=== PATIENT | male | born 1940 | race Caucasian/White ===

== ENCOUNTER 2024-07-10 12:33 | Inpatient (IN) | payer MEDICARE, BC ==
[~2024-07-10] VITALS: Ht 182.9 cm; Wt 70.3 kg
[2024-07-10] MEDS ORDERED: APIX2.5T PO (15:17)
[2024-07-10] MEDS ORDERED: LEVO150T8 PO (15:42)
[2024-07-10] MEDS ORDERED: ESZO2TAB31 PO (15:42)
[2024-07-10] MEDS ORDERED: LIDO5JEL4 MM (15:42)
[2024-07-10] MEDS ORDERED: FURO80TA3 PO (15:42)
[2024-07-10] MEDS ORDERED: ROSU10TA2 PO (15:42)
[2024-07-10] MEDS ORDERED: ONDANSETRON 4 MG/2 ML VIAL IV PRN (15:45)
[2024-07-10] MEDS ORDERED: REMEDY ESSENTIAL ZINC PASTE 113 GM TOP PRN (15:45)
[2024-07-10] MEDS ORDERED: REMEDY ESSENTIAL ZINC PASTE 113 GM TP PRN (15:45)
[2024-07-10] MEDS ORDERED: MAGNESIUM HYDROXIDE 30 ML LIQUID UDC PO PRN (15:45)
[2024-07-10] MEDS ORDERED: ACETAMINOPHEN 325 MG TABLET PO PRN (15:45)
[2024-07-10 15:56] VITALS: BP 145/81; TEMP 97.6; O2SAT 97
[2024-07-10] MEDS ORDERED: TRIA15CR2 TP (16:14)
[2024-07-10] MEDS ORDERED: LACT-246 PO (16:15)
[2024-07-10] MEDS ORDERED: Medication Not On Formulary EA (Rosuvastatin Calcium (Crestor) 10 MG) PO SCH (16:45)
[2024-07-10] MEDS ORDERED: Medication Not On Formulary EA (Eszopiclone 2 MG) PO PRN (16:45)
[2024-07-10] MEDS ORDERED: Medication Not On Formulary EA (Lactose-Reduced Food (Ensure Enlive) 237 ML) PO SCH (17:00)
[2024-07-10] MEDS: APIXABAN 2.5 MG TABLET PO SCH (17:38)
[2024-07-10] MEDS: HYDROCODONE/APAP 5-325MG TABLET PO PRN (20:13)
[2024-07-10] MEDS: DOCUSATE SODIUM 100 MG CAPSULE PO SCH (20:14)
[2024-07-10 20:49] VITALS: TEMP 97.3
[2024-07-10 20:51] VITALS: BP 128/72; TEMP 97.3; O2SAT 96
[2024-07-10] MEDS: LIDOCAINE VISCUS 2% 15 ML UDC MM SCH (22:00)
[2024-07-11] MEDS: GUAIFENESIN/DEXTROMETHORPHAN 5 ML UDC PO PRN (04:27)
[2024-07-11] MEDS: LEVOTHYROXINE SODIUM 150 MCG TABLET PO SCH (06:27)
[2024-07-11] MEDS: PANTOPRAZOLE SODIUM 40 MG TABLET.DR PO SCH (06:28)
[2024-07-11 07:22] VITALS: TEMP 97.4
[2024-07-11 07:23] VITALS: BP 142/83; TEMP 97.4; O2SAT 96
[2024-07-11 07:57] VITALS: BP 145/79; TEMP 97.8; O2SAT 97
[2024-07-11 08:16] LABS: BASOPHILS % (AUTO) 0.2 % (0.0-2.0); EOSINOPHILS % (AUTO) 0.2 % (0.0-7.0); HEMATOCRIT 42.9 % (36.7-47.1); LYMPHOCYTES # (AUTO) 1.4 K/uL (0.8-4.8); MEAN CORPUSCULAR HEMOGLOBIN 31.4 uug (23.8-33.4); MEAN CORPUSCULAR HGB CONC 33 g/dL (32.5-36.3); MONOCYTES # (AUTO) 0.8 K/uL (0.1-1.30); MONOCYTES % (AUTO) 8.3 % (0.0-11.0); NEUTROPHILS # (AUTO) 7.8 K/uL (1.8-8.9); NEUTROPHILS % (AUTO) 77.3 % (38.5-71.5); PLATELET COUNT (AUTO) 118 K/uL (152-348); RED BLOOD CELL COUNT(AUTO) 4.47 MIL/uL (4.06-5.63); WHITE BLOOD COUNT (AUTO) 10.1 K/uL (3.6-10.2)
[2024-07-11 08:21] LABS: DIFFERENTIAL COMMENT 1
[2024-07-11 08:33] LABS: CALCIUM 8.8 mg/dL (8.5-10.1); CARBON DIOXIDE 30 mmol/L (21-32); CHLORIDE 104 mmol/L (98-107); CHOLESTEROL 96 mg/dL (<200); GLUCOSE 154 mg/dL (74-106); HDL CHOLESTEROL 46 mg/dL (40-60); MAGNESIUM 2.1 mg/dL (1.8-2.4); POTASSIUM 4.8 mmol/L (3.5-5.1); SODIUM SERUM 138 mmol/L (136-145); TRIGLYCERIDES 56 MG/DL (30-150); UREA NITROGEN, BLOOD 43 mg/dL (7-18)
[2024-07-11] MEDS: ENSURE ENLIVE (VAN) 240 ML LIQUID PO SCH (09:58)
[2024-07-11 15:41] VITALS: BP 131/84; TEMP 97.4; O2SAT 96
[2024-07-11 21:17] VITALS: BP 100/65; TEMP 97.2; O2SAT 93
[2024-07-11] MEDS: ATORVASTATIN 20 MG TABLET PO SCH (21:32)
[2024-07-11] MEDS: CETIRIZINE HCL 10 MG TABLET PO SCH (21:32)
[2024-07-12 05:15] VITALS: BP 129/76; TEMP 98.3; O2SAT 95
[2024-07-12 09:01] VITALS: BP 132/88; TEMP 97.6; O2SAT 95
[2024-07-12 16:09] VITALS: BP 113/73; TEMP 97.5; O2SAT 94
[2024-07-12 20:14] VITALS: BP 133/73; TEMP 97.5; O2SAT 98
[2024-07-13 06:15] VITALS: BP 141/82; TEMP 97.6; O2SAT 95
[2024-07-13 08:54] LABS: BASOPHILS % (AUTO) 0.4 % (0.0-2.0); EOSINOPHILS # (AUTO) 0.1 K/uL (0.0-0.7); EOSINOPHILS % (AUTO) 1.4 % (0.0-7.0); HEMOGLOBIN 15.2 g/dL (12.5-16.3); LYMPHOCYTES # (AUTO) 1.3 K/uL (0.8-4.8); LYMPHOCYTES % (AUTO) 12.6 % (20.5-51.5); MEAN CORPUSCULAR HEMOGLOBIN 32.1 uug (23.8-33.4); MEAN CORPUSCULAR HGB CONC 33 g/dL (32.5-36.3); MEAN CORPUSCULAR VOLUME 97.1 fL (73.0-96.2); MONOCYTES # (AUTO) 0.7 K/uL (0.1-1.30); MONOCYTES % (AUTO) 6.4 % (0.0-11.0); NEUTROPHILS % (AUTO) 79.2 % (38.5-71.5); PLATELET COUNT (AUTO) 118 K/uL (152-348); RED BLOOD CELL COUNT(AUTO) 4.74 MIL/uL (4.06-5.63); RED CELL DISTRIBUTION WIDTH 21.3 % (12.1-16.2); WHITE BLOOD COUNT (AUTO) 10.1 K/uL (3.6-10.2)
[2024-07-13 09:00] LABS: DIFFERENTIAL COMMENT 1
[2024-07-13 09:11] LABS: ALANINE AMINOTRANSFERASE 91 U/L (16-63); ALBUMIN 2.1 g/dL (3.4-5.0); ALKALINE PHOSPHATASE 451 U/L (50-136); ASPARTATE AMINOTRANSFERASE 61 U/L (15-37); BILIRUBIN,TOTAL 2.8 mg/dL (0.2-1.0); CARBON DIOXIDE 29 mmol/L (21-32); CHLORIDE 106 mmol/L (98-107); CREATININE 1.1 mg/dL (0.6-1.3); GLUCOSE 86 mg/dL (74-106); PHOSPHOROUS 3.6 mg/dL (2.5-4.9); POTASSIUM 4.9 mmol/L (3.5-5.1); SODIUM SERUM 142 mmol/L (136-145); TOTAL PROTEIN, SERUM 5.1 g/dL (6.4-8.2); UREA NITROGEN, BLOOD 27 mg/dL (7-18)
[2024-07-13 11:17] LABS: BAND % (MANUAL) 4 % (0-10); LYMPHOCYTES % (MANUAL) 6 % (20-40); MONOCYTES % (MANUAL) 9 % (2-10); NEUTROPHILS % (MANUAL) 73 % (42-75)
[2024-07-13 11:18] LABS: ANISOCYTOSIS 2+; PLATELET ESTIMATE DECREASED; REACTIVE LYMPHOCYTES 8 % (0-0)
[2024-07-13 18:42] VITALS: BP 130/77; TEMP 97.8; O2SAT 94
[2024-07-13 20:44] VITALS: BP 120/75; TEMP 97.9; O2SAT 95
[2024-07-14] MEDS: ZOLPIDEM 5 MG TABLET PO PRN (00:58)
[2024-07-14 07:07] VITALS: BP 123/82; TEMP 98.3; O2SAT 92
[2024-07-14 07:51] VITALS: BP 114/76; TEMP 97.8; O2SAT 96
[2024-07-14] MEDS ORDERED: METOCLOPRAMIDE HCL 10 MG/2 ML VIAL IV PRN (08:30)
[2024-07-14 09:20] LABS: BASOPHILS # (AUTO) 0.1 K/UL (0.0-0.2); BASOPHILS % (AUTO) 0.8 % (0.0-2.0); EOSINOPHILS # (AUTO) 0.1 K/uL (0.0-0.7); EOSINOPHILS % (AUTO) 1.1 % (0.0-7.0); HEMATOCRIT 43.3 % (36.7-47.1); HEMOGLOBIN 14.2 g/dL (12.5-16.3); LYMPHOCYTES # (AUTO) 1.6 K/uL (0.8-4.8); LYMPHOCYTES % (AUTO) 12.9 % (20.5-51.5); MEAN CORPUSCULAR HEMOGLOBIN 31.6 uug (23.8-33.4); MEAN CORPUSCULAR HGB CONC 33 g/dL (32.5-36.3); MEAN CORPUSCULAR VOLUME 96.4 fL (73.0-96.2); MONOCYTES # (AUTO) 1.2 K/uL (0.1-1.30); MONOCYTES % (AUTO) 9.4 % (0.0-11.0); NEUTROPHILS # (AUTO) 9.5 K/uL (1.8-8.9); NEUTROPHILS % (AUTO) 75.8 % (38.5-71.5); PLATELET COUNT (AUTO) 119 K/uL (152-348); RED BLOOD CELL COUNT(AUTO) 4.49 MIL/uL (4.06-5.63); RED CELL DISTRIBUTION WIDTH 20.8 % (12.1-16.2); WHITE BLOOD COUNT (AUTO) 12.5 K/uL (3.6-10.2)
[2024-07-14 09:22] LABS: DIFFERENTIAL COMMENT 1
[2024-07-14 09:40] LABS: CALCIUM 8.7 mg/dL (8.5-10.1); CARBON DIOXIDE 23 mmol/L (21-32); CHLORIDE 107 mmol/L (98-107); CREATININE 0.9 mg/dL (0.6-1.3); GLUCOSE 98 mg/dL (74-106); MAGNESIUM 1.8 mg/dL (1.8-2.4); PHOSPHOROUS 3.2 mg/dL (2.5-4.9); POTASSIUM 4.3 mmol/L (3.5-5.1); SODIUM SERUM 140 mmol/L (136-145); UREA NITROGEN, BLOOD 28 mg/dL (7-18)
[2024-07-14 12:04] VITALS: BP 108/69; TEMP 97.8; O2SAT 98
== END 2024-07-14 13:35 | DRG 177 ==
PROVIDERS: ADMIT Physical Medicine & Rehabilitation Pain Medicine; ATTEND Physical Medicine & Rehabilitation Pain Medicine
DX: U07.1 COVID-19 (principal); J12.82 Pneumonia due to coronavirus disease 2019; J96.01 Acute respiratory failure with hypoxia; D68.59 Other primary thrombophilia; I48.21 Permanent atrial fibrillation; I50.32 Chronic diastolic (congestive) heart failure; N17.9 Acute kidney failure, unspecified; E46 Unspecified protein-calorie malnutrition; E03.9 Hypothyroidism, unspecified; E78.5 Hyperlipidemia, unspecified; L89.159 Pressure ulcer of sacral region, unspecified stage; L89.029 Pressure ulcer of left elbow, unspecified stage; L89.019 Pressure ulcer of right elbow, unspecified stage; I07.1 Rheumatic tricuspid insufficiency; E86.0 Dehydration; R53.1 Weakness; L89.129 Pressure ulcer of left upper back, unspecified stage; L89.119 Pressure ulcer of right upper back, unspecified stage; M89.8X9 Other specified disorders of bone, unspecified site; Z91.81 History of falling; R74.01 Elevation of levels of liver transaminase levels; Z79.01 Long term (current) use of anticoagulants; Z95.0 Presence of cardiac pacemaker; Z95.2 Presence of prosthetic heart valve; Z91.040 Latex allergy status
CPT/HCPCS: 36415; 70030-TC; 71045; 83735; 84100; 85025; A6209; C1758